=== PATIENT | male | born 1970 | race Caucasian/White ===

== ENCOUNTER 2019-02-01 23:00 | Inpatient (IN) | payer OTHER ==
[2019-02-01 23:23] LABS: Bilirubin Negative (Negative); Blood, Urine Negative (Negative); Clarity CLEAR (Clear); Glucose, Urine (Dipstick) Negative (Negative); Leukocyte Negative (Negative); Nitrite Negative (Negative); Protein, Urine (Dipstick) Negative (Neg-Trace); Specific Gravity, Urine 1.005 (1.002-1.036)
--- NOTE | 2019-02-01 23:29 | RAD ---
CHEST ONE VIEW: 02/01/19 HISTORY: Chest pain. FINDINGS: No comparison. Cardiac silhouette is magnified by projection. Shallow inspiration accentuates pulmonary markings. Me diastinum is midline. No lobar consolidation or evidence of pneumothorax. The school lunch monitor leads o verlie the chest. IMPRESSION: No active cardiopulmonary abnormalities are demonstrated. POS: [facility]
[2019-02-01 23:47] LABS: #Eosinphils 0.2 thou/uL (0.0-0.7); #Lymphocytes 0.7 thou/uL (1.20-3.40); #Monocytes 0.6 thou/uL (0.11-0.59); #Neutrophils 5.3 thou/uL (1.40-6.50); %Basophils 0.4 % (0.0-1.0); %Eosinophils 2.3 % (0.0-10.0); %Lymphocytes 10.4 % (21.0-51.0); %Monocytes 8.7 % (0.0-10.0); %Neutrophils 78.2 % (42.0-75.0); Mean Corpuscular HGB CONC 34.8 g/dL (32.0-36.0); Mean Corpuscular Volume 86.3 fL (78.0-98.0); Mean Platelet Volume 8.1 fL (7.4-10.4); Platelet Count 225 thou/uL (130-400); RBC Distribution Width 12.6 % (11.5-14.5); Red Blood Cell (RBC) Count 4.99 mill/uL (4.70-6.10); White Blood Cell (WBC) Count 6.7 thou/uL (4.8-10.8)
[2019-02-02 00:05] LABS: ALT (SGPT) 48 U/L (8-55); AST (SGOT) 28 U/L (5-34); Alkaline Phosphatase 72 U/L (40-150); Anion Gap 13 mmol/L (10-20); BUN (Urea Nitrogen) 12 mg/dL (8.9-20.6); Bilirubin, Total 0.5 mg/dL (0.2-1.2); Calc. Creatinine Clearance 0 mL/min (70-130); Calcium 9.2 mg/dL (7.8-10.44); Carbon Dioxide 24 mmol/L (22-29); Chloride 105 mmol/L (98-107); Estimated GFR-MDRD Greater than 90; Globulin 3.3 g/dL (2.4-3.5); Glucose 90 mg/dL (70-105); Potassium 3.6 mmol/L (3.5-5.1); Protein, Total 7.3 g/dL (6.0-8.3); Sodium 138 mmol/L (136-145)
[2019-02-02 00:24] LABS: Acetaminophen Less than 6.0 mcg/mL (10.0-30.0); Alcohol Less than 10 mg/dL (Less than 10); Salicylate Less than 8.0 mg/dL (15.0-30.0)
[2019-02-02] MEDS ORDERED: Acetaminophen 500 MG TAB ONE (00:47)
[2019-02-02 01:30] LABS: Amphetamine Not Detected (NotDetected); Barbiturates Screen Not Detected (NotDetected); Benzodiazepine Screen Not Detected (NotDetected); Cocaine Metabolite Screen Not Detected (NotDetected); Medtox Control Line Valid? VALID (VALID); Medtox Reader # READER 4; Methadone Not Detected (NotDetected); Methamphetamine Not Detected (NotDetected); Opiate Screen Not Detected (NotDetected); Oxycodone Screen Not Detected (NotDetected); Phencyclidine (PCP) Not Detected (NotDetected); THC/Cannabinoid Screen Not Detected (NotDetected); Tricyclic Screen Not Detected (NotDetected)
[2019-02-02] MEDS ORDERED: Sodium Chloride 0.9% 100 ML ONE (03:59)
[2019-02-02] MEDS ORDERED: Piperacillin/Tazobactam 3.375 GM VIAL ONE (03:59)
[2019-02-02] MEDS ORDERED: Vancomycin HCl 1.25 GM in Sodium Chloride 0.9% 250 ML 250 ML IVPB SCH (04:00)
[2019-02-02] MEDS ORDERED: Milk Of Magnesia 30 ML UDCUP PO PRN (04:01)
[2019-02-02 05:49] VITALS: BMI 27.6
[2019-02-02] MEDS ORDERED: Ondansetron PF 4 MG/2 ML Vial IVP PRN ×2 (05:49→10:57)
[2019-02-02] MEDS ORDERED: Sodium Chloride 0.9% 1,000 ML IV SCH (05:49)
[2019-02-02] MEDS ORDERED: Ondansetron ODT 4 MG TAB SL PRN ×2 (05:49→10:57)
[2019-02-02] MEDS ORDERED: Acetaminophen 325 MG TAB PO PRN (05:49)
--- NOTE | 2019-02-02 07:20 | CT ---
CT HEAD NONCONTRAST: Date: 02/02/19 INDICATION: Altered mental status. FINDINGS: There is no acute intracranial hemorrhage, mass effect, midline shift, or ventriculomegaly. There is scattered paranasal sinus mucosal thickening. Motion artifact produces streaking artifact intracrania lly which limits detail. IMPRESSION: No acute intracranial hemorrhage or mass effect. POS: [facility]
--- NOTE | 2019-02-02 07:22 | CT ---
CTA CHEST WITH 3D VOLUME RENDERING WITH CONTRAST: Date: 02/02/19 INDICATION: Tachycardia, chest pain. FINDINGS: There is no significant filling defect of the pulmonary arteries. The thoracic aorta is nonaneurysmal . Patchy bilateral pulmonary parenchymal opacities are present, which may be related to volume loss. No pleural fluid or pneumothorax. No acute osseous abnormality. IMPRESSION: 1. No evidence of an acute pulmonary embolus. 2. Bilateral subpleural patchy opacities which may be on the basis of atelectasis. 3. Incidental note of mildly prominent paraesophageal lymph nodes. The possibility of underlying barbara plasm cannot be excluded. Recommend clinical correlation, and imaging follow-up is also recommended t o exclude progression in size. Currently, dominant paraesophageal lymph node measures approximately 1 cm. POS: [facility]
[2019-02-02] MEDS ORDERED: Enoxaparin Sodium 40 MG/0.4 ML SYRINGE SC SCH (09:00)
[2019-02-02] MEDS ORDERED: Piperacillin/Tazobactam 3.375 GM in Sodium Chloride 0.9% 100 ML IVPB SCH (10:00)
[2019-02-02] MEDS ORDERED: Benzonatate 100 MG CAP PO PRN (10:57)
[2019-02-02] MEDS ORDERED: Loratadine 10 MG TAB PO PRN (10:57)
[2019-02-02] MEDS ORDERED: Diabetic Tussin 200 MG/10 ML UDCUP PO PRN (10:57)
[2019-02-02] MEDS: Sodium Chloride 0.9% 1,000 ML IV SCH ×2 (11:32→18:06)
--- NOTE | 2019-02-02 12:07 | CON ---
DATE OF CONSULTATION: CONSULTING PHYSICIAN: Dr. Cuellar from the hospitalist group. REASON FOR CONSULTATION: Hypotension. HISTORY OF PRESENT ILLNESS: The patient is a 48-year-old penitentiary inmate, who was brought to the emergency room after a possible seizure episode at home. He states that he had been having problems with chest pain for the last day. He had a temperature up to 101.8. He had been coughing. I could not get anything out of the patient in regard to the possible seizure episode, and I do not believe this was witnessed by anybody at this facility. Since admission, he has had systolic pressures in the 80s to 90s, but has otherwise been doing well. 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 PAST SURGICAL HISTORY: Neck surgery. MEDICATIONS: Prior to admission none. SOCIAL HISTORY: Smoked regularly prior to being incarcerated a year and a half ago. Does not drink alcohol. Does not use illicit drugs. ALLERGIES: NONE. REVIEW OF SYSTEMS: Twelve-point review of systems is otherwise negative. PHYSICAL EXAMINATION: VITAL SIGNS: Temperature 99.6, pulse 91, blood pressure 85/65. GENERAL: He is awake and alert, in no distress. He will not cooperate fully with exam. HEENT: Unremarkable. NECK: No adenopathy or JVD. LUNGS: Clear without wheezing or rhonchi. CARDIAC: S1, S2. Regular. ABDOMEN: Soft. EXTREMITIES: No edema. LABORATORY DATA: White blood cell count 6.7, hematocrit 43, and platelet count 225 with 78% neutrophils, 10% lymphocytes. Sodium 130, potassium 3.6, BUN 12, creatinine 0.8, glucose 90. Procalcitonin level was 0.1, which is lower than the cut off for severe sepsis. Chest x-ray showed no mass, effusion, or infiltrate. CT of the chest demonstrated a 1 cm paraesophageal lymph node, question of atelectasis in the right base. ASSESSMENT: 1. Febrile illness-likely viral in etiology. 2. Transient hypotension, which appears to be responding to fluids. 3. 1 cm paraesophageal lymph node of unknown significance. RECOMMENDATIONS: I agree with the empiric antibiotics and continuing the patient's IV fluids. The patient can probably transfer out to the medical floor, if his blood pressure remains stable. The paraesophageal lymph node is probably a benign entity, but this is something that should be further worked out as an outpatient by Gastroenterology. It is not in a location that could be biopsied easily. Job ID: [id number]
[2019-02-02] MEDS ORDERED: Vancomycin HCl 1 GM in Premix Bag 1 BAG IVPB SCH (14:00)
[2019-02-02] MEDS: Acetaminophen 500 MG TAB PO PRN ×2 (14:48→22:06)
--- NOTE | 2019-02-02 15:05 | HP ---
PRIMARY CARE PROVIDER: [place] [facility]. CHIEF COMPLAINT: Cough, shortness of breath, chest pain, and fever. HISTORY OF PRESENT ILLNESS: This is a 48-year-old male, who presents to [facility] Emergency Department complaining of approximate 2-day history of increased fatigue, body aches, fever, dry cough, and chest pain. The patient states [facility] and was given Claritin and ibuprofen without relief of the symptoms. The patient admits to a dry cough and general fatigue. The patient denies receiving influenza vaccination and states he is unsure if he has ever received it. The patient denied any sick contacts, however, resides in a local [facility]. The patient denied any associated nausea, vomiting, or diarrhea. The patient admits to some decreased oral intake. In the emergency room, the patient underwent general evaluation including CT imaging of the chest as well as portable chest imaging showing no acute process. The patient was noted hypotensive, receiving approximately 3 L of normal saline in addition to vancomycin and Zosyn after suspected sepsis due to tachycardia, hypotension, and a fever of 101.8 degrees Fahrenheit. The patient was referred to the Hospitalist Service for further evaluation. PAST MEDICAL HISTORY: 1. Question of cerebrovascular accident/transient ischemic attack in 1999 with right-sided weakness. 2. Cervical degenerative disk disease. 3. Anxiety. 4. History of substance abuse including heroin and amphetamines. PAST SURGICAL HISTORY: 1. Status post cervical spine fusion at C3 on C4. 2. Status post right hip surgery. CURRENT MEDICATIONS: [id number] Tylenol and Claritin. ALLERGIES: NO KNOWN DRUG ALLERGIES. FAMILY HISTORY: No inheritable diseases per the patient report. SOCIAL HISTORY: The patient incarcerated. Former tobacco use. None, currently. No alcohol. Prior history of amphetamine and heroin use five years prior to this evaluation. REVIEW OF SYSTEMS: CONSTITUTIONAL: Negative for weight loss or gain, ability to conduct usual activities. SKIN: Negative for rash, itching. EYES: Negative for double vision, pain. ENT/MOUTH: Negative for nose bleeding, neck stiffness, pain, tenderness. CARDIOVASCULAR: Negative for palpitations, dyspnea on exertion, orthopnea. RESPIRATORY: Negative for shortness of breath, wheezing, cough, hemoptysis, fever or night sweats. GASTROINTESTINAL: Negative for poor appetite, abdominal pain, heartburn, nausea, vomiting, constipation, or diarrhea. GENITOURINARY: Negative for urgency, frequency, dysuria, nocturia. MUSCULOSKELETAL: Negative for pain, swelling. NEUROLOGIC/PSYCHIATRIC: Negative for anxiety, depression. ALLERGY/IMMUNOLOGIC: Negative for skin rash, bleeding tendency. Otherwise negative except as stated per HPI. PHYSICAL EXAMINATION: VITAL SIGNS: On admission, blood pressure 85/65, pulse 88, respiratory rate is 16, temperature 101.8 degrees Fahrenheit, and O2 saturation 97% on room air. GENERAL APPEARANCE: This is a 48-year-old male, alert and oriented x3, pleasant, responsive, in no acute distress. HEENT: Pupils are equal, round, reactive to light and accommodation. Extraocular muscles are intact. No scleral icterus. No conjunctival injection. Nares patent. OP is clear. Oral mucosa dry. NECK: Supple. No cervical adenopathy. No thyromegaly. No carotid bruits. No JVD appreciated. Cervical spine with full active and passive range of motion. No meningeal signs noted. CHEST: Lungs are clear to auscultation bilaterally. CARDIOVASCULAR: S1 and S2 without noted murmur, rub, or gallop. ABDOMEN: Rounded, soft, nontender, and nondistended. Bowel sounds are positive in all 4 quadrants. There is no hepatosplenomegaly. No abdominal bruits. No rebound or guarding appreciated. EXTREMITIES: Wrist shackles noted. No clubbing, cyanosis, or asymmetric edema of the bilateral lower extremities. Pulses palpable distally at the dorsalis pedis, posterior tibial, and popliteal arteries bilaterally. Capillary refill less than 2 seconds. NEUROLOGIC: Cranial nerves 2 through 12 are grossly intact. No focal or lateralizing signs appreciated. PERTINENT LAB AND X-RAY FINDINGS: Complete metabolic profile within normal limits. Procalcitonin level 0.10. Lactic acid level 1.1. CBC showed a white blood cell count of 6.7, hemoglobin 15, hematocrit 43, platelet count 225, with 78% neutrophils. Urinalysis negative. Urine drug screen dated 02/01/2019, negative. Influenza A and B antigen negative, 02/02/2019. Portable chest x-ray dated 02/01/2019 showed no acute cardiopulmonary process. CT of the brain without contrast dated 02/02/2019, negative. CT angiogram of the chest dated 02/02/2019, showed no evidence for pulmonary embolus. Patchy opacities of the bibasilar region consistent with atelectasis. Mild paraesophageal lymphadenopathy. EKG dated 02/01/2019, by my interpretation shows sinus tachycardia, heart rates in the 130s. Normal R-wave progression noted in the precordial leads. Normal axis. No acute ST-T wave changes noted. ASSESSMENT AND PLAN: 1. Systemic inflammatory response syndrome. The patient will be admitted to the telemetry unit. Suspect viral etiology and potential influenza. The patient received IV fluid resuscitation in the emergency department and initiated on vancomycin and Zosyn. No current evidence of focal infectious process or pneumonia. We will continue general supportive management and monitor clinical response. 2. Hypotension. Suspect secondary to volume depletion and a viral etiology. Continue IV fluids with normal saline at 150 mL/h. Encourage increased free water intake orally. Avoid all antihypertensive medications. Check serum cortisol level. 3. Influenza. Suspected given the patient's presentation and communal living situation. Check influenza panel by PCR. General supportive management including Toradol 30 mg IV q.6 hours p.r.n. for fever. Antitussive agents. 4. Sinus tachycardia. Suspect secondarily to febrile episode. Continue IV fluids as outlined previously. 5. Prophylaxis. SCDs while in bed. Pepcid 20 mg p.o. b.i.d. 6. Code status is full. Surrogate medical decision maker is [employer]. Job ID: [id number]
[2019-02-02] MEDS: Famotidine 20 MG TAB PO SCH (22:07)
[2019-02-03] MEDS: Sodium Chloride 0.9% 1,000 ML IV SCH ×3 (00:05→12:09)
[2019-02-03] MEDS: Famotidine 20 MG TAB PO SCH (08:11)
--- NOTE | 2019-02-03 09:12 | PRG ---
DATE OF SERVICE: 02/03/2019 SUBJECTIVE: The patient feels better today. Has no acute complaints. His influenza A test did come back positive on the 2nd swab, even on the 1st swab was negative. OBJECTIVE: HEENT: Unremarkable. NECK: No JVD. CHEST: Clear. CARDIAC: S1 and S2, regular. ABDOMEN: Soft. EXTREMITIES: No edema. LABORATORY DATA: No new labs were done today. ASSESSMENT: Influenza A. PLAN: The patient is symptomatically better. Can probably be discharged back to the unit. Decision whether or not to treat with antivirals will be left to the Primary Team. Pulmonary will sign off. Please recall if further assistance is needed. Job ID: [id number]
[2019-02-03] MEDS: Acetaminophen 500 MG TAB PO PRN (11:14)
--- NOTE | 2019-02-03 17:12 | PDOC.PN ---
- Subjective Encounter Start Date: 02/03/19 Encounter Start Time: 17:11 Mr. Kelley was seen today in follow-up of Influenza A with sepsis. He says he is feeling better. His blood pressure has been stable. - Objective Resuscitation Status - Order Detail: 02/02/19 05:52 Resuscitation Status Routine Resuscitation Status: FULL: Full Resuscitation MAR Reviewed: Yes Vital Signs & Weight: Vital Signs (12 hours) Temp Pulse Resp BP Pulse Ox 02/03/19 11:15 100.3 F H 99 16 93/61 97 02/03/19 07:15 97 02/03/19 07:10 99.3 F 109 H 16 119/76 97 Weight Admit Weight 193 lb Weight 191 lb 5 oz Most Recent Monitor Data Heart Rate from ECG 92 NIBP 78/57 NIBP BP-Mean 64 Respiration from ECG 17 SpO2 98 I&O: 02/02/19 02/03/19 02/04/19 06:59 06:59 06:59 Intake Total 3050 Output Total 3700 Balance -650 Result Diagrams: 02/01/19 23:20 02/01/19 23:20 Phys Exam - Physical Examination HEENT: PERRLA Respiratory: no wheezing, no rales, no rhonchi, clear to auscultation bilateral Cardiovascular: RRR, no significant murmur, no rub Gastrointestinal: soft, non-tender, no distention, positive bowel sounds Musculoskeletal: no edema Dx/Plan (1) Influenza A (H1N1) Code(s): J10.1 - FLU DUE TO OTH IDENT INFLUENZA VIRUS W OTH RESP MANIFEST Status: Acute (2) Sepsis Code(s): A41.9 - SEPSIS, UNSPECIFIED ORGANISM Status: Acute - Plan * Sepsis from Influenza A- resolved * Stable for discharge.
[2019-02-03 17:20] VITALS: BP 95/55; TEMP 97.4
--- NOTE | 2019-02-03 17:34 | DIS ---
DATE OF ADMISSION: 02/02/2019 DATE OF DISCHARGE: 02/03/2019 DISCHARGE DISPOSITION: Back to detention. DISCHARGE DIAGNOSES: 1. Sepsis syndrome. 2. Influenza A. DISCHARGE MEDICATIONS: Include Tessalon Perles 100 mg q.6 hours as needed. PROCEDURES DONE DURING THE ADMISSION: CT scan of the brain, which was negative for any acute intracranial hemorrhage or mass effect. The patient also had a CT angiogram of the chest showing no evidence of pulmonary embolism. There was bilateral subpleural patchy opacities, which may be on the basis of atelectasis. There is an incidental note of a prominent paraesophageal lymph node. CODE STATUS: Full code. ALLERGIES: NO KNOWN DRUG ALLERGIES. HOSPITAL COURSE: Mr. Kelley is a pleasant 48-year-old gentleman, who presented to the emergency room with complaints of cough, shortness of breath, and fever. He was also relatively hypotensive as well. He was started on IV fluids and screen for influenza A was positive. He was treated symptomatically and improved over the course of the next couple of days, and was subsequently able to be discharged back to the detention on 02/03/2019. Job ID: [id number]
--- NOTE | 2019-02-04 21:12 | EKG ---
Test Reason : Blood Pressure : / mmHG Vent. Rate : 130 BPM Atrial Rate : 130 BPM P-R Int : 146 ms QRS Dur : 082 ms QT Int : 296 ms P-R-T Axes : 021 065 021 degrees QTc Int : 435 ms Sinus tachycardia Otherwise normal ECG Confirmed by JAZLYN LONGORIA DO ([id number]), editor sound SACHIN TOLENTINO ([id number]) on 02/04/2019 9:11:36 PM Referred By: Confirmed By:JAZLYN LONGORIA DO
== END 2019-02-03 19:15 | DRG 872 ==
LOC: ERS 23:00 → IMCU/EMU 02-02 04:48 → 2NO 02-02 17:23
PROVIDERS: ADMIT Hospitalist; ATTEND Hospitalist
DX: A41.89 Other specified sepsis (principal); J10.1 Influenza due to other identified influenza virus with other respiratory manifestations; F41.9 Anxiety disorder, unspecified; Z98.1 Arthrodesis status; Z98.890 Other specified postprocedural states; Z87.891 Personal history of nicotine dependence
CPT/HCPCS: 36415; 70450; 71045; 71275; 80053; 80306; 80307; 81003; 82533; 83605; 84145; 84443; 84484; 85025; 87040; 87631; 87804; 90471; 90686; 93005; 94760; G0008; J1650; J2543; J3370; J7050